=== PATIENT | male | born 1955 | race Caucasian/White ===

== ENCOUNTER 2016-09-20 18:44 | Emergency (ER) | payer BC ==
[2016-09-20 18:50] VITALS: BP 191/95
--- NOTE | 2016-09-20 20:58 | RAD ---
HISTORY: Left lower extremity edema Comparison: Most recent DVT study is dated 07/03/2016 and 10/16/2008 TECHNIQUE: Multiple transverse and longitudinal ultrasound images were obtained of the veins of the left lower extremity using grayscale, color Doppler, and spectral Doppler imaging with and without compression and with augmentation. FINDINGS: VEINS: The patient appears to have duplicated left femoral vein. One of the 2 veins exhibits flow limiting echogenic thrombus narrowing the lumen similar in appearance to the previous ultrasound. The second vein appears adequately patent. The left popliteal vein has chronic thrombus in the lumen greatly narrowing the lumen. SOFT TISSUES: Grossly normal. No large popliteal fossa cyst was identified. IMPRESSION: 1. 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 Chronic DVT and lower extremity swelling exclusive to the left leg can sometimes be due to mechanical compression in the pelvis. CT or MR venography of the abdomen and pelvis may be warranted to determine if this patient suffers from an anatomic or compression deformity syndrome. 2. Incidentally imaged is what appears to be an occluded proximal left superficial femoral artery. Please correlate to symptoms of claudication.
[2016-09-20] MEDS ORDERED: Enoxaparin(*) 100 MG/ML SYR SUBCUT ONE (21:11)
[2016-09-20 21:29] LABS: Hematocrit 51 % (42-52); Hemoglobin 16.5 g/dl (14.0-18.0); Mean Corpuscular HGB Conc 32 g/dl (31-36); Mean Corpuscular Hemoglobin 27 pg (27-31); Mean Corpuscular Volume 83 fL (80-94); Mean Platelet Volume 10 um3 (7.4-10.4); Red Blood Count 6.16 10^6/ul (4.0-5.4); Red Cell Distribution Width 15 % (10.5-15); White Blood Count 12.5 10^3/ul (3.5-10.8)
[2016-09-20 21:45] LABS: Albumin 3.8 g/dL (3.2-5.2); BUN/Creatinine Ratio 19.1 (8-20); Calcium 9.2 mg/dL (8.6-10.3); EGFR African American 87.2 (>60); EGFR Non-African American 67.8 (>60); Globulin 2.9 g/dL (2-4); Potassium 4.9 mmol/L (3.5-5.0); Total Bilirubin 0.4 mg/dL (0.2-1.0); Total Protein 6.7 g/dL (6.4-8.9)
[2016-09-20] MEDS ORDERED: Enoxaparin(*) 150 MG/ML 1 ML SYRINGE SUBCUT SCH (22:00)
--- NOTE | 2016-09-22 14:34 | ED ---
Eliud Frias Billy, scribed for Sohan Crowell MD on 09/20/16 at 2105 . Lower Extremity - HPI Summary HPI Summary: Patient is a 61 year-old male coming to [facility] presenting with onset of constant LLE swelling and pain for 2 days. Severity 2/10. Nothing makes it better/worse. He denies any CP or SOB. He was placed on Coumadin for 14 months to treat chronic DVT in the LLE, but it was discontinued approximately one week ago by Dr. Cullen. SHx of heavy daily tobacco use. - History of Current Complaint Chief Complaint: EDExtremityLower Stated Complaint: LEFT LEG SWELLING/PAIN Time Seen by Provider: 09/20/16 19:55 Hx Obtained From: Patient Onset of Pain: Days Onset/Duration: Days Severity Initially: Moderate Severity Currently: Moderate Pain Intensity: 2 Pain Scale Used: 0-10 Numeric Timing: Constant Location: Is Discrete @ - LLE Associated Signs And Symptoms: Positive: Swelling Aggravating Factor(s): Nothing Alleviating Factor(s): Nothing - Allergies/Home Medications Allergies/Adverse Reactions: Allergies Allergy/AdvReac Type Severity Reaction Status Date / Time Codeine Allergy Stomach Verified 06/15/15 16:26 Cramps PMH/Surg Hx/FS Hx/Imm Hx Endocrine/Hematology History: Denies: Hx Diabetes Cardiovascular History: Reports: Hx Hypertension Denies: Hx Congestive Heart Failure Respiratory History: Reports: Hx Chronic Obstructive Pulmonary Disease (COPD) - equivocal History: Denies: Hx Renal Disease - Surgical History Surgery Procedure, Year, and Place: cyst (benign) on left shoulder; broken jaw Infectious Disease History: No Infectious Disease History: Denies: Hx Clostridium Difficile, Hx Hepatitis, Hx Human Immunodeficiency Virus (HIV), Hx of Known/Suspected MRSA, Hx Shingles, Hx Tuberculosis, Hx Known/ Suspected VRE, Hx Known/Suspected VRSA, History Other Infectious Disease, Traveled Outside the [place] in Last 30 Days - Family History Known Family History: Positive: Other - FHx of blood clots. - Social History Alcohol Use: None Alcohol Amount: stopped 11.5 yrs ago Substance Use Type: Reports: None Smoking Status (MU): Heavy Every Day Tobacco Smoker Amount Used/How Often: 1 ppd Have You Smoked in the Last Year: Yes Review of Systems Negative: Chest Pain Negative: Shortness Of Breath Positive: Myalgia, Edema All Other Systems Reviewed And Are Negative: Yes Physical Exam - Summary Physical Exam Summary: GENERAL: Awake, alert, oriented, no acute distress, very pleasant HEENT: Head is normocephalic, atraumatic, anicteric sclera, clear conjunctiva, mucous membranes moist, no erythema, no discharge, no lesions, neck is supple, trachea is midline, no JVD CARDIAC: Regular rate and rhythm, S1, S2, no rub, no murmur, no gallop, 2+ radial pulses bilaterally. 1+ dorsalis pedal pulses bilaterally. RESPIRATORY: Clear to auscultation bilaterally with no rales, rhonchi, or wheezes, non-tender ABDOMEN: Bowel sounds positive, no bruit, soft, non-tender, no CVA tenderness EXTREMITIES: Warm, dry, moving all extremities in a grossly normal manner. LLE appears approximately 2 cm wider in diameter than RLE. NEUROLOGICAL: Mood is appropriate, moving all extremities in a grossly normal manner Triage Information Reviewed: Yes Vital Signs On Initial Exam: Initial Vitals Temp Pulse Resp BP Pulse Ox 97.8 F 74 18 191/95 97 09/20/16 18:45 09/20/16 18:45 09/20/16 18:45 09/20/16 18:45 09/20/16 18:45 Vital Signs Reviewed: Yes Diagnostics - Vital Signs Vital Signs Temp Pulse Resp BP Pulse Ox 09/20/16 18:45 97.8 F 74 18 191/95 97 - Laboratory Result Diagrams: 09/20/16 21:16 09/20/16 19:56 Lab Statement: Any lab studies that have been ordered have been reviewed, and results considered in the medical decision making process. - Ultrasound No standard instances Ultrasound Interpretation Completed By: Radiologist - Lower extremity US: 1. 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 Chronic DVT and lower extremity swelling exclusive to the left leg can sometimes be due to mechanical compression in the pelvis. CT or MR venography of the abdomen and pelvis may be warranted to determine if this patient suffers from an anatomic or compression deformity syndrome. 2. Incidentally imaged is what appears to be an occluded proximal left superficial femoral artery. Please correlate to symptoms of claudication. Re-Evaluation - Re-Evaluation First Eval Re-Evaluation Time: 21:18 Comment: US report reviewed. We had a rather long, 15-minute conversation about the benefits smoking cessation. Lower Extremity Course/Dx - Course Assessment/Plan: 61 year-old male to the ED with history of chronic LLE DVT comes to the ED with increased pain/swelling of the LLE. US shows what could be an occluded proximal left superficial femoral artery. Findings discussed with the patient. He will be discharged home to follow up with his PCP. - Diagnoses Provider Diagnoses: DVT (deep venous thrombosis), Peripheral vascular disease - Physician Notifications Discussed Care of Patient With: Renard Segundo NP (hospitalist) @ 2105 Discharge - Discharge Plan Condition: Stable Disposition: HOME Patient Education Materials: Leg Edema (ED), Blood Thinners (ED) Referrals: Arnaud Aparicio MD [Primary Care Provider] - 2 Days Andres Cullen MD [Medical Doctor] - 2 Days Additional Instructions: PLEASE FOLLOW UP WITH DR. CULLEN. RETURN TO THE EMERGENCY DEPARTMENT WITH ANY WORSENING SYMPTOMS SUCH CHEST PAIN OR SHORTNESS OF BREATH. The documentation as recorded by the Eliud merlos Billy accurately reflects the service I personally performed and the decisions made by me, Sohan Crowell MD.
[2016-09-23 12:35] LABS: Protein C Activity 95 % (70 - 150)
[2016-09-23 12:51] LABS: LAC APTT 26 sec (26 - 36); LAC INR 0.9; Prothrombin Time(LAC) 9.9 sec
[2016-09-23 12:52] LABS: Lac DRVVT Screen Ratio 0.9 ratio (0.0 - 1.1)
[2016-09-23 16:01] LABS: Phospholipid Ab IgG < 4.0 GPL; Phospholipid Ab IgM, S < 4.0 MPL
[2016-09-25 09:56] LABS: Factor V Leiden Mutation Negative (Negative); Prothrombin 20210 Mutation Negative (Negative)
== END 2016-09-20 22:36 | disposition home or self-care (01) ==
LOC: ED 18:44
DX: I82.4Z2 Acute embolism and thrombosis of unspecified deep veins of left distal lower extremity (principal); I73.9 Peripheral vascular disease, unspecified
CPT/HCPCS: 36415; 80053; 81240; 81241; 83090; 85025; 85300; 85303; 85306; 85307; 85610; 85613; 85730; 86147; 99282; J1650

== ENCOUNTER 2018-10-20 20:25 | Observation (INO) | payer BC ==
[2018-10-20] MEDS ORDERED: Albuterol/Ipratropium NEB.SOL* Albuterol 2.5 MG/Ipratropium 0.5 MG 3 ML INH ONE (20:46)
[2018-10-20] MEDS ORDERED: methylPREDNISolone 125 MG* 2 ML VIAL IV ONE (20:46)
--- NOTE | 2018-10-20 21:00 | ED ---
Syncope/Near Syncope - HPI Summary HPI Summary: This patient is a 63 year old male brought in to [facility] by EMS with a chief complaint of an episode of syncope due to SOB that occurred tonight. His is present and witnessed the episode, she describes it as he began coughing, mucus started coming out of his mouth, and his eyes rolled back in his head. She did not take a pulse at this time and contacted EMS instead, she states the episode lasted 5 minutes before resolving. He states he had two other fits like this today but did not have any LOC with them. He states he does not really have SOB currently. He takes 10mg of day of warfarin due to clotting and he has been on it for 10 years. He does have a history of COPD and does still smoke. He has not had another heart work up since 2008. He also c/o sharp pain that radiating from his neck into his skull - History Of Current Complaint Chief Complaint: EDShortnessOfBreath Time Seen by Provider: 10/20/18 20:40 Hx Obtained From: Patient Onset/Duration: Lasting Hours - 5, Resolved Timing: Intermittent Episode Lasting Context: Witnessed Activity At Onset: Other Associated Head Trauma: No Associated Signs And Symptoms: Other - LOC - Allergies/Home Medications Allergies/Adverse Reactions: Allergies Allergy/AdvReac Type Severity Reaction Status Date / Time codeine Allergy Stomach Verified 10/20/18 20:55 Cramps Home Medications: Home Medications Chlorhexidine MW 0.12% 473ML* [Peridex Mouth Wash 0.12%] 1 dose PO DAILY [History Confirmed 10/21/18] Lisinopril 10 mg PO DAILY 10/21/18 [History Confirmed 10/21/18] Pravastatin Sodium 40 mg PO DAILY 10/21/18 [History Confirmed 10/21/18] Warfarin Sodium 10 mg PO DAILY 10/21/18 [History Confirmed 10/21/18] PMH/Surg Hx/FS Hx/Imm Hx Endocrine/Hematology History: Denies: Hx Diabetes Cardiovascular History: Reports: Hx Hypertension Denies: Hx Congestive Heart Failure Respiratory History: Reports: Hx Chronic Obstructive Pulmonary Disease (COPD) - equivocal History: Denies: Hx Renal Disease - Surgical History Surgery Procedure, Year, and Place: cyst (benign) on left shoulder; broken jaw Infectious Disease History: No Infectious Disease History: Denies: Hx Clostridium Difficile, Hx Hepatitis, Hx Human Immunodeficiency Virus (HIV), Hx of Known/Suspected MRSA, Hx Shingles, Hx Tuberculosis, Hx Known/ Suspected VRE, Hx Known/Suspected VRSA, History Other Infectious Disease, Traveled Outside the [place] in Last 30 Days - Family History Known Family History: Positive: Other - FHx of blood clots. Negative: Respiratory Disease - Social History Alcohol Use: None Alcohol Amount: stopped 11.5 yrs ago Substance Use Type: Reports: None Smoking Status (MU): Heavy Every Day Tobacco Smoker Amount Used/How Often: 1 ppd Have You Smoked in the Last Year: Yes Review of Systems Negative: Fever Positive: Shortness Of Breath, Cough Positive: Syncope All Other Systems Reviewed And Are Negative: Yes Physical Exam - Summary Physical Exam Summary: Appearance: Well appearing, no pain distress Skin: warm, dry, reflects adequate perfusion Head/face: normal Eyes: EOMI, RENATA ENT: normal Neck: supple, non-tender Respiratory: occasional wheeze bilaterally Cardiovascular: RRR, pulses symmetrical Abdomen: non-tender, soft Musculoskeletal: normal, strength/ROM intact Neuro: normal, sensory motor intact, A&Ox3 Triage Information Reviewed: Yes Vital Signs On Initial Exam: Initial Vitals Temp Pulse Resp BP Pulse Ox 99.3 F 80 22 147/69 91 10/20/18 20:30 10/20/18 20:30 10/20/18 20:30 10/20/18 20:30 10/20/18 20:30 Vital Signs Reviewed: Yes - Nadia Coma Scale Best Eye Response: 4 - Spontaneous Best Motor Response: 6 - Obeys Commands Best Verbal Response: 5 - Oriented Coma Scale Total: 15 Diagnostics - Vital Signs Vital Signs Temp Pulse Resp BP Pulse Ox 10/20/18 20:31 82 147/69 93 10/20/18 20:30 99.3 F 80 12 147/69 91 - Laboratory Result Diagrams: 10/20/18 21:04 10/20/18 21:04 Lab Statement: Any lab studies that have been ordered have been reviewed, and results considered in the medical decision making process. - Radiology CXR Radiology Interpretation Completed By: ED Physician Summary of Radiographic Findings: No acute process. Pending official report - CT CT Head CT Interpretation Completed By: Radiologist Summary of CT Findings: No acute intracranial abnormality. ED physician has reviewed this report. - EKG 2046 Cardiac Rate: NL EKG Rhythm: Sinus Rhythm - at 81 BPM Summary of EKG Findings: No acute changes Course/Dx Assessment/Plan: This patient is a 63 year old male brought in to [facility] by EMS with a chief complaint of an episode of syncope due to SOB that occurred tonight. CXR was negative. Pending official report. CT Brain reveals, per radiology, No acute intracranial abnormality. Bloodwork obtained. The patient was given Tylenol and a duoneb in the ED with improvement. I contacted Dr. Rios and she has accepted the patient for admission. - Diagnoses Differential Diagnosis/HQI/PQRI: Positive: Dysrhythmia, Vasovagal Episode Provider Diagnoses: COPD exacerbation, SOB (shortness of breath), Syncope - Physician Notifications Discussed Care of Patient With: Kandy Rios Time Discussed With Above Provider: 23:00 Instructed by Provider To: Admit As Inpatient Discharge - Sign-Out/Discharge Documenting (check all that apply): Patient Departure - admitted Patient Received Moderate/Deep Sedation with Procedure: No - Discharge Plan Condition: Fair Disposition: ADMITTED TO [facility] - Billing Disposition and Condition Condition: FAIR Disposition: Admitted to [facility] - Attestation Statements Document Initiated by Scribe: Yes Documenting Scribe: Edwar Mosquera Provider For Whom Scribe is Documenting (Include Credential): Ian Duran MD Scribe Attestation: Edwar Frias , scribed for Ian Duran MD on 10/21/18 at 0054. Scribe Documentation Reviewed: Yes Provider Attestation: The documentation as recorded by the Edwar merlos accurately reflects the service I personally performed and the decisions made by Ian roldan MD Status of Scribe Document: Viewed
[2018-10-20 21:14] LABS: ABS Basophils 0.1 10^3/ul (0-0.2); ABS Eosinophils 0.2 10^3/ul (0-0.6); ABS Lymphocytes 1.9 10^3/ul (1.0-4.8); ABS Monocytes 0.7 10^3/ul (0-0.8); ABS Neutrophils 5.9 10^3/ul (1.5-7.7); ABS Nucleated RBC 0 10^3/ul; Eosinophil % 2.6 %; Hematocrit 48 % (42-52); Hemoglobin 15.9 g/dl (14.0-18.0); Lymphocyte % 22.1 %; Mean Corpuscular HGB Conc 33 g/dl (31-36); Mean Corpuscular Hemoglobin 28 pg (27-31); Mean Corpuscular Volume 84 fL (80-94); Mean Platelet Volume 9.2 fL (7.4-10.4); Nucleated Red Blood Cells % 0; Platelet Count 199 10^3/ul (150-450); Red Blood Count 5.74 10^6/ul (4.00-5.40); Red Cell Distribution Width 14 % (10.5-15); White Blood Count 8.8 10^3/ul (3.5-10.8)
[2018-10-20 21:23] LABS: Activated Partial Thrombo Time 37.3 seconds (26.0-36.3); INR 1.78 (0.77-1.02)
[2018-10-20 21:31] LABS: Albumin/Globulin Ratio 1.7 (1-3); BUN/Creatinine Ratio 21.6 (8-20); Calcium 8.8 mg/dL (8.6-10.3); EGFR African American 80.7 (>60); EGFR Non-African American 66.7 (>60); Globulin 2.4 g/dL (2-4); Total Bilirubin 0.3 mg/dL (0.2-1.0); Total Protein 6.4 g/dL (6.4-8.9)
[2018-10-20 22:10] LABS: TSH (Thyroid Stimulating Horm) 1.19 mcIU/mL (0.34-5.60)
[2018-10-20 22:23] LABS: Potassium 4.5 mmol/L (3.5-5.0)
[2018-10-20] MEDS ORDERED: Acetaminophen TAB* 325 MG PO PRN (23:19)
[2018-10-20 23:20] LABS: C Reactive Protein 5.71 mg/L (<8.01)
[2018-10-20] MEDS ORDERED: Acetaminop/Codeine 30 MG TAB* 1 TAB (300 MG/30 MG) PO PRN (23:21)
[2018-10-20 23:40] LABS: Magnesium 2.2 mg/dL (1.9-2.7)
[2018-10-20] MEDS ORDERED: Albuterol HFA INHALER* 8 gm MDI INH PRN (23:45)
[2018-10-20] MEDS ORDERED: guaiFENesin LIQ* 100 MG/5 ML UDC PO PRN (23:45)
[2018-10-20] MEDS ORDERED: Iohexol 350* (CONTRAST) 500 ML MDV IV ONE (23:46)
[2018-10-21] MEDS: Albuterol/Ipratropium NEB.SOL* Albuterol 2.5 MG/Ipratropium 0.5 MG 3 ML INH SCH ×2 (00:57→03:40)
[2018-10-21] MEDS ORDERED: Warfarin TAB(*) 2 MG PO ONE (01:05)
--- NOTE | 2018-10-21 01:43 | HP ---
CC: Dr. Aparicio * HISTORY AND PHYSICAL: DATE OF ADMISSION: 10/20/18 PRIMARY CARE PROVIDER: Dr. Aparicio. CHIEF COMPLAINT: Syncope after cough. HISTORY OF PRESENT ILLNESS: Rasheed Torres is a 63-year-old male with history of COPD, not treated, who has chronic cough and today after shoveling snow outside developed three "cough attacks." After the initial two attacks, he felt dizzy, but did not pass out; the third one, he passed out; and as per his who witnessed the syncope, the patient was unconscious for approximately 4 minutes. The patient denies any chest pain before or after the syncope. He was short of breath when he was coughing. He is not short of breath now. There was no incontinence noted. The patient was evaluated in the emergency room by Dr. Duran, who noted that the patient had situational syncope. Nevertheless, Dr. Duran recommended for the patient to be observed overnight to rule out arrhythmia. PAST MEDICAL HISTORY: 1. History of COPD, currently untreated. 2. History of DVT, on chronic Coumadin. 3. History of fracture of the mandible, status post surgery for it remotely. 4. Dyslipidemia. 5. Current smoking. HOME MEDICATIONS: Include: 1. Lisinopril 10 mg daily. 2. Pravachol 40 mg daily. 3. Coumadin 10 mg daily. ALLERGIES: CODEINE causes GI upset. FAMILY HISTORY: Positive for mother with history of Alzheimer's who when she was "nearly 90." Father with history of stroke at the age of 69 who in his 80s. SOCIAL HISTORY: The patient was an alcoholic, but quit drinking in 2004. He denies any drug use. He smokes one pack per day and he started when he was 11 years old. He lives with his , Kassy, who is his surrogate. REVIEW OF SYSTEMS: Please see history of present illness. The patient stated that he has chronic cough productive of green sputum. Sometimes when exerts himself, he coughs more. Otherwise, he has no clear-cut exercise intolerance. He denies any chest pain with exercise. He has never experienced syncope before. He denies any fevers. His cough today is not out of ordinary for him. His breathing is also at baseline. The remaining 12 systems were reviewed with the patient and were otherwise negative. PHYSICAL EXAMINATION GENERAL: The patient is a pleasant 63-year-old male, who is in no acute distress. Alert, awake, and oriented x3. VITAL SIGNS: Blood pressure of 143/68, heart rate of 75 and regular, respiratory rate 21, oxygen saturation 92% on room air, temperature of 99.3. HEENT: Head: Atraumatic, normocephalic. Eyes: Pupils are equal, reactive to light and accommodation. Oropharynx clear. Mucosa moist. NECK: Supple. No JVD. No bruits bilaterally. RESPIRATORY: Distant breath sounds bilaterally. No wheezes. CARDIOVASCULAR: Regular rate and rhythm. No murmurs. ABDOMEN: Soft, nontender. Bowel sounds are present in all 4 quadrants. EXTREMITIES: There is trace bilateral ankle edema. Pulses are +2 bilaterally. There is no clubbing, cyanosis. NEUROLOGIC: On neuro evaluation, speech clear. Cranial nerves II through XII are grossly intact. Motor strength is 5/5 bilaterally. PSYCHIATRIC: On psychiatric evaluation, alert and oriented x3 with no evidence of anxiety or depression. DIAGNOSTIC STUDIES/LAB DATA: Showed white blood cell count 8.8, hemoglobin 15.9 , hematocrit 48, platelets 199. INR 1.78. ABG showed pH of 7.39, PCO2 of 40, PO2 of 76, bicarb of 24. Sodium 137, potassium 4.9, chloride 106, carbon dioxide 25, BUN 24, creatinine 1.1. Liver function tests unremarkable. Lactic acid of 1.3. Troponin of 0. C-reactive protein of 5.7. TSH of 1.19. The patient's EKG showed normal sinus rhythm with a heart rate of 81 beats per minute with no ST changes. The patient's portable chest x-ray reviewed by myself showed no acute cardiopulmonary abnormality. ASSESSMENT AND PLAN: 1. Situational syncope due to cough. Unfortunately, the patient is allergic to CODEINE which could be a good cough suppressant for the patient. I believe that apart from underlying chronic obstructive pulmonary disease, he may have cough variant asthma. It is also possible that his LISBETH inhibitor causes the cough. At this point, the patient is going to be placed on Dulera. He already received a nebulizer treatment as well as Solu-Medrol IV in the emergency department, but at this point he does not appear to be wheezing. I will place the patient on albuterol inhaler on p.r.n. basis and will be beneficial for the patient to be discharged on inhalers for home. 2. For the patient's hypertension, I will stop his lisinopril due to that it could contribute to cough and observe. 3. As the patient has history of deep venous thrombosis and for deep venous thrombosis prophylaxis, the patient is on Coumadin 10 mg daily and his INR is subtherapeutic. He is going to be placed on Coumadin 12 mg daily and I am going to give him additional dose tonight. Due to history of deep venous thrombosis and now syncope, I will order a CT angiogram of chest to rule out pulmonary embolism. 4. The patient's code status is full and his surrogate is his , Kassy. TIME SPENT: Approximately 65 minutes were spent on the admission of this patient, more than half of that time was spent [id number] with the patient during the interview and physical exam. [id number]/CPS #: [id number] [place]
[2018-10-21] MEDS ORDERED: Albuterol/Ipratropium NEB.SOL* Albuterol 2.5 MG/Ipratropium 0.5 MG 3 ML INH PRN (03:41)
[2018-10-21 06:09] LABS: ABS Basophils 0 10^3/ul (0-0.2); ABS Eosinophils 0 10^3/ul (0-0.6); ABS Lymphocytes 0.7 10^3/ul (1.0-4.8); ABS Monocytes 0.1 10^3/ul (0-0.8); ABS Neutrophils 6.5 10^3/ul (1.5-7.7); ABS Nucleated RBC 0 10^3/ul; Eosinophil % 0.2 %; Hematocrit 48 % (42-52); Hemoglobin 15.6 g/dl (14.0-18.0); Mean Corpuscular HGB Conc 33 g/dl (31-36); Mean Corpuscular Hemoglobin 28 pg (27-31); Mean Corpuscular Volume 84 fL (80-94); Mean Platelet Volume 9.4 fL (7.4-10.4); Nucleated Red Blood Cells % 0; Platelet Count 191 10^3/ul (150-450); Red Blood Count 5.67 10^6/ul (4.00-5.40); Red Cell Distribution Width 15 % (10.5-15); White Blood Count 7.2 10^3/ul (3.5-10.8)
[2018-10-21 06:14] LABS: INR 1.94 (0.77-1.02)
[2018-10-21 06:29] LABS: BUN/Creatinine Ratio 21.4 (8-20); EGFR African American 75.9 (>60); EGFR Non-African American 62.8 (>60); Potassium 4.9 mmol/L (3.5-5.0)
[2018-10-21] MEDS ORDERED: Mometasone/Formoter 200/5 MDI INH SCH (09:00)
--- NOTE | 2018-10-21 09:00 | ECHO ---
Patient: KENNY GRIDER [facility] Rec#: [id number] : 1955 Date: 10/21/2018 Age: 63y Height: 183 cm / 72.0 in Weight: 129 kg / 284.3 lbs Sex: M BSA: 2.48 Room#: [facility] Admit Date#: 10/20/2018 Type: Inpatient Referring: Kandy Rios MD Reading: Tylor Pepe DO Nocturnist Physician: Kacie Camarena RDCS CC: Arnaud Aparicio MD Transthoracic Echocardiogram Indication: Syncope BP: 139/68 HR: 77 Rhythm: NSR Findings History: HTN, smoker, obesity, DVT, COPD, dyslipidemia, former ETOH abuse. Technical Comments: The study quality is fair. Completed at 0825. Left Ventricle: The left ventricular chamber size is normal. Mild concentric left ventricular hypertrophy is observed. Global left ventricular wall motion and contractility are within normal limits. There is normal left ventricular systolic function. The estimated ejection fraction is 55-60%. Abnormal left ventricular diastolic function is observed. Left Atrium: The left atrium is mildly dilated. Right Ventricle: The right ventricular chamber size and systolic function are within normal limits. Right Atrium: The right atrium is mildly dilated. Aortic Valve: The aortic valve is trileaflet. The aortic valve leaflets are mildly thickened. There is no evidence of aortic regurgitation. There is no evidence of aortic stenosis. Mitral Valve: The mitral valve leaflets are mildly thickened. There is a trace of mitral regurgitation. There is no evidence of mitral stenosis. Tricuspid Valve: The tricuspid valve leaflets are normal. There is trace tricuspid regurgitation. Unable to estimate the right ventricular systolic pressure. There is no tricuspid stenosis. Pulmonic Valve: The pulmonic valve appears normal. There is a trace pulmonic regurgitation. There is no pulmonic stenosis. Pericardium: There is no significant pericardial effusion. Aorta: There is no dilatation of the ascending aorta. The aortic arch is not well visualized. The aortic root is normal in size. Pulmonary Artery: The main pulmonary artery is not well visualized. Venous: The inferior vena cava appears normal in size. There is a greater than 50% respiratory change in the inferior vena cava dimension. Conclusions The left ventricular chamber size is normal. Mild concentric left ventricular hypertrophy is observed. Global left ventricular wall motion and contractility are within normal limits. There is normal left ventricular systolic function. The estimated ejection fraction is 55-60%. The left atrium is mildly dilated. Normal RV size and function No significant valvular abnormalities noted. Compared to prior study from 05/2011, no significant changes noted Measurements Name Value Normal Range RVIDd (AP) 2D 3.3 cm (0.9 - 2.6) RVDdMajor (2D) 4.8 cm (2.2 - 4.4) RA (A4C)W 4.9 cm (2.9 - 4.6) IVSd (2D) 1.2 cm (0.6 - 1) LVPWd (2D) 1.2 cm (0.6 - 1) LVIDd (2D) 5.1 cm (3.6 - 5.4) LVIDs (2D) 3.4 cm - LV FS (2D) 33 % (25 - 45) Aortic Annulus 2.1 cm (1.4 - 2.6) Ao root diameter (2D) 3.4 cm (2.1 - 3.5) Ascending Ao 3.2 cm (2.1 - 3.4) LA dimension (AP) 2D 4.3 cm (2.3 - 3.8) LAd ISD 4CH 5.9 cm (2.9 - 5.3) LA ISD 4CH W 4.6 cm (2.5 - 4.5) Name Value Normal Range LA ESV BP (A/L) index 34 ml/m2 - Name Value Normal Range MV E-wave Vmax 1.1 m/sec - MV deceleration time 218 msec - MV A-wave Vmax 1 m/sec - MV E:A ratio 1.1 ratio - LV septal e' Vmax 0.08 m/sec - LV lateral e' Vmax 0.09 m/sec - LV E:e' septal ratio 13.8 ratio - LV E:e' lateral ratio 12.2 ratio - Name Value Normal Range AV Vmax 1.96 m/sec - AV VTI 40 cm - AV peak gradient 15 mmHg - AV mean gradient 8 mmHg - LVOT Vmax 1.5 m/sec - LVOT VTI 26 cm - LVOT peak gradient 9 mmHg - LVOT mean gradient 3 mmHg - Name Value Normal Range IVC diameter 1.8 cm - Name Value Normal Range PV Vmax 1.2 m/sec - PV peak gradient 5 mmHg -
[2018-10-21 09:45] VITALS: BP 140/67
--- NOTE | 2018-10-21 20:02 | DS ---
AMENDED REPORT NOW INCLUDES COSIGNER DESIGNATION CC: Dr. Arnaud Aparicio * DISCHARGE SUMMARY: DATE OF ADMISSION: 10/20/18 DATE OF DISCHARGE: 10/21/18 PRIMARY CARE PROVIDER: Dr. Arnaud Aparicio. ATTENDING PHYSICIAN: Dr. Josefina Moss * (dictated by Beverly Treadwell NP). PRIMARY DIAGNOSES: 1. Vasovagal syncope due to cough. 2. Chronic obstructive pulmonary disease, untreated. SECONDARY DIAGNOSES: 1. History of deep venous thrombosis. 2. Hyperlipidemia. 3. Hypertension. STUDIES WHILE IN THE HOSPITAL: 1. EKG on 10/20/18 shows normal sinus rhythm with a rate of 81, QTc 453. No ischemic changes. 2. Chest x-ray on 10/20/18 reads as no evidence for acute disease. 3. Brain CT on 10/20/18 reads as no acute intracranial abnormality. 4. Chest/thorax CTA on 10/20/18 reads as no acute findings. 5. Transthoracic echocardiogram on 10/21/18 reads as the left ventricular chamber size is normal. Mild concentric left ventricular hypertrophy is observed. Global left ventricular wall motion and contractility are within normal limits. There is normal left ventricular systolic function. The estimated ejection fraction is 55% to 60%. The left atrium is mildly dilated. Normal RV size and function. No significant valvular abnormalities. Compared to prior study from May 2011, no significant changes noted. HISTORY OF PRESENT ILLNESS AND HOSPITAL COURSE: Mr. Torres is a 63-year-old male with past medical history of untreated COPD, hypertension, DVT and hyperlipidemia, who presented to the emergency room on 10/20/18 with complaints of syncope after a coughing episode. Please see the history and physical by Dr. Rios for a complete summary of the events leading up to this hospitalization. In short, the patient has a history of COPD for which he is not treated. He is a current smoker, smoking 1 pack per day for approximately 50 years. The patient had been shoveling snow outside and had an episode of coughing, during which he lost consciousness. The patient's witnessed the syncope and reports that he lost consciousness for approximately 4 minutes. He presented to the emergency room where he had imaging as noted above. He had normal ABGs, a negative troponin, and essentially unremarkable labs. However, because of the concern for possible arrhythmia, he was admitted by the hospitalist service. Mr. Torres had an uneventful night and had no arrhythmias noted on tele except for some short periods of bigeminy and trigeminy while sleeping. He continues to have a cough, but the patient reports that he has a chronic productive cough , which he has had for a number of years. He reported to me that he has syncopized in the past during these coughing episodes, though he currently is still a smoker and is not being treated for his COPD. He reports that he had been on an inhaler in the past, which he felt was not helpful and he stopped taking it. He did have 1 nebulizer while in the emergency room, which he felt was helpful. I will note that the patient is on warfarin for a history of DVT. On arrival to the emergency room, his INR was noted to be 1.78. The patient reports that he has taken 10 mg of warfarin daily for a number of years and is always therapeutic on that dose. He has not needed a change in dosing for quite some time. He received an additional 2 mg of warfarin last night and as of this morning his INR was 1.94. The patient does report that he consumed 1 can of spinach a couple days ago, which is somewhat unusual for him. He understands that spinach and other green leafy vegetables will affect his INR. On admission, the patient was taken off his lisinopril due to the unlikely event that the lisinopril was contributing to his cough. He has been slightly hypertensive off of the lisinopril with systolic pressures up into the 150s. I do think it is unlikely that the lisinopril is causing any significant increase in cough as I do believe his cough is solely secondary to his COPD and current smoking status. The patient did have an echo as noted above, which was unchanged from his prior echo in 2010 and at this point there are no cardiac concerns. His syncope was vasovagal secondary to cough. I did speak at length with the patient about his diagnosis of COPD and the need to quit smoking. He understands that going forward he will need to use daily inhalers to treat his COPD and should quit smoking in order to prevent further progression of the disease. On exam, his lung sounds are diminished throughout, but there is no wheezing, rhonchi, or rales. He is saturating well on room air and has been up ambulating without difficulty. He denies any shortness of breath or chest pain. Mr. Torres is stable for discharge today. Vital signs are as follows: Temp 97.7 , heart rate 78, respiratory rate 20, oxygen saturation 94% on room air, blood pressure 140/67. DISCHARGE MEDICATIONS: New medications: 1. Albuterol MDI 2 puffs q.4 hours p.r.n. shortness of breath. 2. Tessalon Perles 100 mg p.o. t.i.d. p.r.n. cough. 3. Advair 230/21 one puff b.i.d. 4. Nicotine patch 21 mg transdermal daily x6 weeks. 5. Spiriva 1 cap inhalation daily. Continued medications: 1. Chlorhexidine mouthwash 1 dose p.o. daily. 2. Lisinopril 10 mg p.o. daily. 3. Pravastatin 40 mg p.o. daily. 4. Warfarin 10 mg p.o. daily. DISCHARGE PLAN: Mr. Torres will be discharged home. Activity will be as tolerated. Diet will be regular as tolerated, though I did discuss the need to limit vitamin K intake or at least keep the vitamin K intake consistent in an attempt to stabilize his INR. I have advised him that he should have his INR rechecked on Wednesday and he states that he will do this at his primary care office and declined the need for an order. Medications are noted above. The patient does have a prior diagnosis of COPD and has not been on any medications. I have placed him on Advair and Spiriva, and he has been instructed to take these daily for maintenance. I have also prescribed him an albuterol inhaler for a rescue medication. I suspect that the Advair and Spiriva will help with his cough, though I have also prescribed him a month's worth of Tessalon in order to help control his cough. The patient has verbalized a desire to quit smoking. He reports he has tried Chantix and nicotine replacement in the past and it did not work for him, though he is motivated at this point and was agreeable to using a nicotine patch. I sent in a prescription for 6 weeks of the Step 1 patch. His primary care provider will need to follow up in order to titrate him off these patches appropriately. The patient reports that he has seen a community health consultant previously with [facility], though he was not particularly happy with the care he received. I have advised him that he may follow up with Pulmonology here at [facility], but will likely need a referral from his PCP. He will need to follow up with his primary care provider in 4 to 7 days. He has been advised to return to the emergency room or nearest hospital for any worsening of symptoms, shortness of breath, lightheadedness, dizziness, chest discomfort, high fevers, chills, night sweats, loss of consciousness, or any other worrisome signs or symptoms. This is a summarized report of a complex medical history and hospital stay. For further details, please see the entire medical record. TIME SPENT: Approximately 45 minutes was spent on this discharge. BEVERLY TREADWELL NP [id number]/[facility] #: [id number] [place]
== END 2018-10-21 11:40 | disposition home or self-care (01) ==
LOC: ED 20:25 → MEDTELE 23:19
PROVIDERS: ADMIT Internal Medicine; ATTEND Internal Medicine
DX: R55 Syncope and collapse (principal); J44.9 Chronic obstructive pulmonary disease, unspecified; Z86.718 Personal history of other venous thrombosis and embolism; R05 Cough; I10 Essential (primary) hypertension; E78.5 Hyperlipidemia, unspecified; Z79.01 Long term (current) use of anticoagulants; F17.210 Nicotine dependence, cigarettes, uncomplicated; R06.02 Shortness of breath
CPT/HCPCS: 36415; 70450; 71045; 71275; 80048; 80053; 82803; 83605; 83735; 83880; 84443; 84484; 85025; 85610; 85730; 86140; 93005; 93306; 96374; 96375; 99284; A9270-GY; G0378; J2930; Q9967

== ENCOUNTER 2019-07-19 14:17 | Emergency (ER) | payer BC, MEDICARE ==
--- OUTSIDE RECORDS SUMMARY | 2019-07-19 14:52 | XMS REPORT | Summary of Care ---
:1955 Author Organization [facility] Address [address] [place] [address] Care Team Providers Name Role Phone Arnaud Aparicio MD Primary Care Provider Reason for Referral MRI/CAT/PET Scan (Routine) Status Reason Specialty Diagnoses / Referred By Referred To Procedures Contact Contact Pending Review Diagnoses Personal history of nicotine dependence Arnaud Aparicio MD Procedures CT CHEST LUNG SCREENING [address] [place] [address] Reason for Visit Reason Comments Other pt presents for discussion on lung screening Encounter Details Date Type Department Care Team Description 06/06/2019 Office Visit [facility] Arnaud Aparicio MD Personal history of nicotine dependence (Primary Dx); Practice [address] [facility] Essential hypertension; [address] [place] [address] Drug-induced erectile dysfunction; [place] [address] Nocturia [phone] Allergies Active Allergy Reactions Severity Noted Date Comments Codeine 08/15/2008 GI upset. Budesonide-Formoterol Fumarate COMBAT INFORMATION CENTER OFFICER Reaction 11/09/2017 Caused a cough documented as of this encounter (statuses as of 06/06/2019) Medications Medication Sig Dispensed Refills Start Date End Date Status Ibuprofen (ADVIL) 200 Take by mouth. 0 Active MG Oral Cap Spacer/Aero-Holding 1 Each by Does not 1 Each 0 12/24/2016 Active Chambers Does not apply route apply Device DIRECTED. With MDI Calcium Polycarbophil Take by mouth. 0 Active (KONSYL FIBER PO) albuterol-ipratropium 3 mL by 360 mL 0 10/25/2018 Active (DUO-NEB) 0.5-2.5 (3) Inhalation-SVN MG/3ML Inhalation route FOUR TIMES Solution DAILY. atorvastatin Take 1 Tab by mouth 90 Tab 1 03/11/2019 Active (LIPITOR) 20 MG Oral DAILY. Stop Tab pravastatin warfarin (COUMADIN) Take 0.5-1 Tabs by 95 Tab 3 04/04/2019 Active 10 MG Oral mouth DAILY. 5mg TabIndications: Tues and 10mg rest Recurrent deep vein of week thrombosis of left lower extremity (HCC) lisinopril (PRINIVIL, Take 1 Tab by mouth 90 Tab 0 05/12/2019 Active ZESTRIL) 10 MG Oral DAILY. TabIndications: Obesity (BMI 30-39.9), Mucopurulent chronic bronchitis (HCC), Tobacco dependence, Dyslipidemia, Recurrent deep vein thrombosis of left lower extremity (HCC) Tadalafil (CIALIS) 20 Take 1 Tab by mouth 6 Tab 0 06/06/2019 Active MG Oral Tab DIRECTED. 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 08/02/2015 Overview: Managed by [facility], referred by Dr Aparicio, Dx acute DVT with hx of DVT, target INR range 2.0-3.0, therapy initiated on 08/03/15, duration of therapy undetermined Anticoagulant Warfarin and Lovenox Updated referral 09/2016, 11/2017, 12/2018 Updated orders 10/07/16, 11/25/17, 01/16/19 Recurrent deep vein thrombosis of left lower extremity 07/06/2015 Overview: 2007 and 2014 risk factors: cigarette use and long car rides Tobacco dependence 10/28/2010 Overview: Began age 13 1 pack per day Obesity (BMI 30-39.9) 08/15/2008 Overview: 12/03/2006, BMI: 38.49 Replaced inactive diagnosis History of Alcohol Abuse 08/15/2008 Overview: Quit cold turkey, 2004. Personal history of colonic polyps 08/15/2008 Overview: S/P colonoscopy, Dr. Goss, 01/11/2007, normal exam. Next recommended no later than 5(five) years. COPD (chronic obstructive pulmonary disease) 08/15/2008 Dyslipidemia documented as of this encounter (statuses as of 06/06/2019) Resolved Problems Problem Noted Date Resolved Date Deep vein thrombosis (DVT) of proximal lower extremity, 09/30/2016 12/01/2016 unspecified chronicity, unspecified laterality DVT (deep venous thrombosis) 08/02/2015 12/01/2016 Encounter for therapeutic drug monitoring 04/07/2010 07/06/2015 Femoral DVT (deep venous thrombosis) 01/03/2009 12/01/2016 Long-Term (Current) Use of Anticoagulants 09/25/2008 10/14/2010 Overview: MANAGED BY [facility]. REFERRED BY DR CHERRY. [facility] INR 2.0- 3.0. FOR DVT. Update Referral 01/2010. 10/14/2010 Received documentation today that this patient is no longer on coumadin. Will discharge him from the [facility] today. Tammy Bryson LPN Hiatal hernia 08/15/2008 07/06/2015 Personal history of tobacco use, presenting hazards to health 08/15/2008 documented as of this encounter (statuses as of 06/06/2019) Immunizations Name Administration Dates Next Due Depo Medrol (80mg) 08/11/2016 PNEUMOCOCCAL POLYSACCHARIDE VACCINE 11/30/2016 TETANUS & DIPHTHERIA TOXOID (OVER 7 YRS) 12/30/2007 Tuberculin Skin Test 10/30/2010, 12/03/2006 documented as of this encounter Social History Tobacco Use Types Packs/Day Years Used Date Former Smoker Cigarettes 1 50 Quit: 10/21/2018 Smokeless Tobacco: Never Used Comments: Chantix, patch, gum Alcohol Use Drinks/Week oz/Week Comments No 0 Standard drinks or equivalent 0.0 Quit 2004 Sex Assigned at Date Recorded Not on file Job Start Date Occupation Industry Not on file Not on file Not on file Travel History Travel Start Travel End No recent travel history available. documented as of this encounter Last Filed Vital Signs Vital Sign Reading Time Taken Comments Blood Pressure 108/64 06/06/2019 2:50 PM EDT Pulse 71 06/06/2019 2:50 PM EDT Temperature - - Respiratory Rate - - Oxygen Saturation 97% 06/06/2019 2:50 PM EDT Inhaled Oxygen Concentration - - Weight 136.8 kg (301 lb 9.6 oz) 06/06/2019 2:50 PM EDT Height 182.9 cm (6') 06/06/2019 2:50 PM EDT Body Mass Index 40.9 06/06/2019 2:50 PM EDT documented in this encounter Progress Notes Arnaud Aparicio MD - 06/06/2019 3:00 PM EDT PATIENT: Rasheed Torres : 1955 DATE OF SERVICE: 06/06/2019 CHIEF COMPLAINT: Chief Complaint Patient presents with Other pt presents for discussion on lung screening Subjective HISTORY OF PRESENT ILLNESS: Rasheed Torres is a 64-y.o. male. Regarding screening for lung cancer screening: Rasheed Torres is a 64-y.o. old male considering lung cancer screening. The patient is a former smoker. He has had a prior CT scan but they were diagnostic and stable . He reports that he quit smoking about 7 months ago. His smoking use included cigarettes. He has a 50.00 pack-year smoking history. He has never used smokeless tobacco. He denies symptoms of lung cancer. Shared decision making was performed. https://effectivehealthcare.ahrq.gov/decision-aids/yozb-oynkdm-eaxrjbgbg/ decisionmaking-tool.html Together we reviewed the benefits of lung cancer screening using an [facility] authored decision supporttool. I discussed the risks of CT screening including false positive results and radiation exposure Assessment/Plan: Rasheed Torres has expressed interest the Lung Screening Program. Low-dose non- contrast CT screening of persons deemed at high risk for lung cancer has been shown to reduce lung cancer mortality by 20% compared with chest x-ray screening. Based on his history of smoking > 30 pack years and stopping within the last 15 years, he meets eligibility criteria. The patient verbally confirmed understanding of this information and accepted to proceed. I have placed orders for low dose CT imaging The patient was counseled on smoking cessation. [id number] He also wants to know if his coumadin is causing his ED. Sometimes he can get an erection and sometimes he cant. He used a friends viagra and it did not help . Not sure of the dose He does admit to nocturia several times In for follow up of hypertension.he has quit smoking and BP is good today . ? side effects to medicines with the ED Past Medical History: Diagnosis Date COPD (chronic obstructive pulmonary disease) ([facility]) 08/15/2008 Dvt femoral (deep venous thrombosis) ([facility]) x 2 2014 Dyslipidemia History of Alcohol Abuse 08/15/2008 Quit cold turkey, 2004. Hypertension LVH (left ventricular hypertrophy) normal EF 11/28 Obesity (BMI 30.0-39.9) 08/15/2008 12/03/2006, BMI: 38.49 Personal history of colonic polyps 01/11/072015 5 years Personal history of tobacco use, presenting hazards to health 08/15/2008 Family History Problem Relation Age of Onset Clotting Disorder Child Respiratory Brother Cystic fibrosis Cancer Brother Pancreas and liver. Anesth Problems No family history Arthritis No family history Diabetes No family history Kidney Disease No family history Heart Disease No family history Thyroid Disease No family history Hypertension No family history Current Outpatient Medications Medication Sig albuterol-ipratropium (DUO-NEB) 0.5-2.5 (3) MG/3ML Inhalation Solution 3 mL by Inhalation-SVNroute FOUR TIMES DAILY. atorvastatin (LIPITOR) 20 MG Oral Tab Take 1 Tab by mouth DAILY. Stop pravastatin Calcium Polycarbophil (KONSYL FIBER PO) Take by mouth. Ibuprofen (ADVIL) 200 MG Oral Cap Take by mouth. lisinopril (PRINIVIL, ZESTRIL) 10 MG Oral Tab Take 1 Tab by mouth DAILY. Spacer/Aero-Holding Chambers Does not apply Device 1 Each by Does not apply route DIRECTED. With MDI warfarin (COUMADIN) 10 MG Oral Tab Take 0.5-1 Tabs by mouth DAILY. 5mg Tues and 10mg rest of week No current facility-administered medications for this visit. Allergies Allergen Reactions Codeine GI upset. Symbicort [Budesonide-Formoterol Fumarate] COMBAT INFORMATION CENTER OFFICER Reaction Caused a cough Social History Socioeconomic History Marital status: Spouse name: Not on file Number of children: Not on file Years of education: Not on file Highest education level: Not on file Occupational History Not on file Social Needs Financial resource strain: Not on file Food insecurity: Worry: Not on file Inability: Not on file Transportation needs: Medical: Not on file Non-medical: Not on file Tobacco Use Smoking status: Former Smoker Packs/day: 1.00 Years: 50.00 Pack years: 50.00 Types: Cigarettes Last attempt to quit: 10/21/2018 Years since quittin.6 Smokeless tobacco: Never Used Tobacco comment: Chantix, patch, gum Substance and Sexual Activity Alcohol use: No Alcohol/week: 0.0 standard drinks Comment: Quit 2004 Drug use: Not on file Sexual activity: Not on file Lifestyle Physical activity: Days per week: Not on file Minutes per session: Not on file Stress: Not on file Relationships Social connections: Talks on phone: Not on file Gets together: Not on file Attends hoahaoism service: Not on file Active member of club or organization: Not on file Attends meetings of clubs or organizations: Not on file Relationship status: Not on file Intimate partner violence: Fear of current or ex partner: Not on file Emotionally abused: Not on file Physically abused: Not on file Forced sexual activity: Not on file Other Topics Concern Back Care Not Asked Bike Helmet Not Asked Blood Transfusions Not Asked Caffeine Concern Not Asked Exercise Not Asked Hobby Hazards Not Asked International Travel Not Asked Service Not Asked Occupational Exposure Not Asked Seat Belt Not Asked Self-Exams Not Asked Sleep Concern Not Asked Special Diet Not Asked Stress Concern Not Asked Weight Concern Not Asked Social History Narrative Lives with . REVIEW OF SYSTEMS: ROS Objective PHYSICAL EXAM: VITALS: BP 108/64 (BP Location: Left arm, Patient Position: Sitting) | Pulse 71 | Ht 6' (1.829 m) | Wt 301 lb 9.6 oz (136.8 kg) | SpO2 97% | BMI 40.90 kg/ m Body mass index is 40.9 kg/m. Physical Exam Constitutional: No distress. Cardiovascular: Normal rate and regular rhythm. Pulmonary/Chest: Effort normal. No respiratory distress. Psychiatric: He has a normal mood and affect. Vitals reviewed. ASSESSMENT / IMPRESSION: ICD-9-CM ICD-10-CM 1. Personal history of nicotine dependence since his scans showed nothing suspicious per radiology will change to a screening CT for Lung cancer Z87.[address] CHEST LUNG SCREENING 2. Essential hypertension BP ok today but other BP in the last 6 mo not ideal If cialis or viagra not help then will consider stopping lisinopril if BP remains good . 401.9 I10 3. Drug-induced erectile dysfunction consider Testosterone if viagra not work but replacement would make prostate symptoms more problematic 607.84 N52.2 E980.5 4. Nocturia if viagra not work then we have to consider prostate workup 788.43 R35.1 Plan Author: Arnaud Aparicio MD 06/06/2019 15:01 documented in this encounter Plan of Treatment Date Type Specialty Care Team Description 07/04/2019 AntiCoag Anticoagulation Name Type Priority Associated Diagnoses Order Schedule CT CHEST LUNG SCREENING Imaging Routine Personal history of Expected: 06/06, nicotine dependence Expires: 06/05/2020 Health Maintenance Due Date Last Done Comments MEDICARE ANNUAL WELLNESS 1955 VISIT ZOSTER IMMUNIZATION SERIES 01/11/2004 (1 of 2) AAA SCREENING/SURVEILLANCE 2019 12/17/2016, 03/03/2016, 11/19/2015 PNEUMOCOCCAL 65+YRS (1 of 2 2019 11/30/2016 - PCV13) LUNG CANCER SCREENING 04/26/2019 04/26/2018, 04/26/2018, 04/20/2018, Additional history exists INFLUENZA VACCINE (#1) 2019 DEPRESSION SCREENING 03/06/2020 03/06/2019 DIABETES SCREENING 03/06/2020 03/06/2019, 10/13/2017, 11/30/2016, Additional history exists FALL RISK ASSESSMENT 03/06/2020 03/06/2019, 03/06/2019 LIPID DISORDER SCREENING 03/11/2020 03/11/2019, 03/06/2019, 10/13/2017, Additional history exists COLONOSCOPY SCREENING 12/31/2020 01/01/2016, 01/11/2007 HPV IMMUNIZATION SERIES Aged Out No longer eligible based on patient's age to complete this topic MENINGOCOCCAL VACCINE IMM Aged Out No longer eligible based on patient's age to complete this topic documented as of this encounter Goals Goal Patient Goal Associated Recent Patient-Stated? Author Type Problems Progress Blood Pressure Blood Pressure 108/64 No Markus, < 150/90 (06/06/2019 MD Arnaud 2:50 PM EDT) Note: This is an individualized treatment (blood pressure) goal for Rasheed Marco A Brian: Displayed above (on the left) is your goal for blood pressure control. Your most recent blood pressure is also shown above, on the right. You should try to achieve blood pressures that are lower than your goal listed above (on the left). Smoking Cessation COPD No Arnaud Aparicio MD Note: This is an individualized treatment (COPD) goal for Rasheed Torres: Quit smoking immediately! Your provider has information and resources that may help you to quit. Keep immunizations current Lifestyle No Arnaud Aparicio MD Note: This is an individualized lifestyle goal for Rasheed Torres: Please be sure to keep up-to-date on recommended immunizations. For example, this would include a yearly influenza vaccine. Immunization status can be seen by looking at the Health Maintenance sections of your [facility], Plan of Care, and any After Visit Summaries. Weight loss vs. 18 mo Lifestyle 14.2 (06/06/2019 2:50 PM No Arnaud Aparicio MD max (lbs) >= 10 EDT) Note: This is an individualized lifestyle goal for Rasheed Torres: Your body mass index (BMI) is more than 30. You should lose weight. A reasonable starting goal is to lose 10 pounds. Displayed above is how many pounds you have lost thus far towards your 10 pound weight loss goal. Take all prescribed medications as directed Self-management No Arnaud Aparicio MD Note: This is an individualized self-management goal for Rasheed Torres: Please take all prescribed medications as directed. 1. Do not skip doses. If you cannot afford your medications, talk with your doctor. 2. Use a pill reminder system such as a pill box if needed. Your pharmacist can help you with this. 3. Contact your Pharmacy 5 days before your medication runs out. If you cannot take your medications for any reasons, talk with your doctor. 4. Please bring all of your medication bottles and inhalers (or a list of all your medications/inhalers) with you to every visit. Potential barriers to meeting all of your care plan goals will continue to be addressed on an ongoing basis. documented as of this encounter Results Not on filedocumented in this encounter Visit Diagnoses Diagnosis Personal history of nicotine dependence - Primary Essential hypertension Unspecified essential hypertension Drug-induced erectile dysfunction Impotence of organic origin Nocturia documented in this encounter Insurance Payer Benefit Plan / Subscriber ID Effective Dates Phone Address Type Group [employer] EX[employer]LL xxxxxxxxxxxx 2018-Present [employer] MEDIC[employer] BLUE PPO ([id number]) documented as of this encounter"
[2019-07-19] MEDS ORDERED: Acetaminophen TAB* 325 MG PO ONE (16:23)
[2019-07-19] MEDS ORDERED: Tetan/Diph/Pertus SYR(Tdap)* 0.5 ML SYR(BOOSTRIX) use SYR contains LATEX IM ONE (16:26)
--- NOTE | 2019-07-19 16:40 | ED ---
Head Injury - HPI Summary HPI Summary: Pt presents to ED with . Pt was outside when slipped and struck right frontal area on fence post. No LOC but "saw stars" no blood HEENT. No vision changes. No neck pain no cp, sob, abd pain. Pt with MALLOY a time of injury - improving with time. No analgesia taken. Pt is on coumadin for recurrent DVT - INR due next week no exte pain weakness no other injuries unknown last tdap not immunocompromised meds reviewed - History Of Current Complaint Chief Complaint: EDHeadInjury Stated Complaint: HEAD INJURY/DIZZY PER PT Time Seen by Provider: 07/19/19 16:10 Hx Obtained From: Patient, Family/Chemistry Specialist Pain Intensity: 5 - Allergies/Home Medications Allergies/Adverse Reactions: Allergies Allergy/AdvReac Type Severity Reaction Status Date / Time codeine Allergy Stomach Verified 10/20/18 20:55 Cramps PMH/Surg Hx/FS Hx/Imm Hx Previously Healthy: Yes Endocrine/Hematology History: Denies: Hx Diabetes Cardiovascular History: Reports: Hx Deep Vein Thrombosis, Hx Hypercholesterolemia, Hx Hypertension Denies: Hx Congestive Heart Failure Respiratory History: Reports: Hx Chronic Obstructive Pulmonary Disease (COPD) - equivocal History: Denies: Hx Renal Disease Sensory History: Reports: Hx Contacts or Glasses Denies: Hx Cataracts, Hx Eye Injury, Hx Glaucoma, Hx Macular Degeneration, Hx Deafness, Hx Hearing Aid, Hx Hearing Problem, Other Sensory Impairments Opthamlomology History: Reports: Hx Contacts or Glasses Denies: Hx Cataracts, Hx Eye Injury, Hx Glaucoma, Hx Macular Degeneration, Other Sensory Impairments - Surgical History Surgery Procedure, Year, and Place: cyst (benign) on left shoulder; broken jaw Infectious Disease History: No Infectious Disease History: Denies: Hx Clostridium Difficile, Hx Hepatitis, Hx Human Immunodeficiency Virus (HIV), Hx of Known/Suspected MRSA, Hx Shingles, Hx Tuberculosis, Hx Known/ Suspected VRE, Hx Known/Suspected VRSA, History Other Infectious Disease, Traveled Outside the [place] in Last 30 Days - Family History Known Family History: Positive: Other - FHx of blood clots., Non-Contributory Negative: Respiratory Disease - Social History Occupation: Retired Lives: With Family Alcohol Use: None Alcohol Amount: stopped 11.5 yrs ago Substance Use Type: Reports: None Smoking Status (MU): Heavy Every Day Tobacco Smoker Amount Used/How Often: 1 ppd Have You Smoked in the Last Year: Yes Review of Systems Constitutional: Negative Eyes: Negative Negative: Photophobia, Blurred Vision Positive: Other - head inury Cardiovascular: Negative Respiratory: Negative Gastrointestinal: Negative Genitourinary: Negative Musculoskeletal: Negative Positive: Other - abraisons right forehead Positive: Headache All Other Systems Reviewed And Are Negative: Yes Physical Exam - Summary Physical Exam Summary: Vital Signs Reviewed: Yes A+Ox3, no distress Eyes: Conjunctiva Clear, RENATA. EOM intact and full ENT: Hearing grossly normal TM x 2 clear, no hemotymp, no septal hematoma, no blood oropharynx, mmoist, uvula midline, no exudate, no erythema no pain with palpation of facial bones pt with abraisons to right frontal area and right buddhism Neck: Positive: Supple full AROM Respiratory: Positive: No respiratory distress, No accessory muscle use + CTA throughout no w/r Cardiovascular: RRR nl s1, s2 no m/r CBT <2 sec abd soft + BS nt/nd no guarding, no distension Musculoskeletal Exam: Full AROM c spine no pain c/t/l/s pt with mild diescomfort right paraspinal VALENCIA x 4 without difficulty Strength Intact, ROM Intact Neurological: Positive: Alert, + sensation throughout Psychological: Positive: Normal Response To systems engineer Skin: Positive: no rash, no ecchymosis, abraison to right frontal area Triage Information Reviewed: Yes Vital Signs On Initial Exam: Initial Vitals Temp Pulse Resp BP Pulse Ox 99.4 F 70 16 152/75 97 07/19/19 14:20 07/19/19 14:20 07/19/19 14:20 07/19/19 14:20 07/19/19 14:20 Vital Signs Reviewed: Yes - [place] Coma Scale Best Eye Response: 4 - Spontaneous Best Motor Response: 6 - Obeys Commands Best Verbal Response: 5 - Oriented Coma Scale Total: 15 Procedures - Sedation Patient Received Moderate/Deep Sedation with Procedure: No Diagnostics - Vital Signs Vital Signs Temp Pulse Resp BP Pulse Ox 07/19/19 14:20 99.4 F 70 16 152/75 97 - Laboratory Lab Statement: Any lab studies that have been ordered have been reviewed, and results considered in the medical decision making process. - CT Brain CT CT Interpretation Completed By: Radiologist Summary of CT Findings: Brain CT IMPRESSION: No intracranial mass or hemorrhage is noted. Reviewed by ED physician. Cervical Spine CT CT Interpretation Completed By: Radiologist Summary of CT Findings: Cervical Spine CT IMPRESSION: No recent fracture of the cervical spine is noted. Broad-based protrusion is noted at C2-C3 and C3-C4. There appears to be suggestion of a bony fragment which is likely from prior injury arising from the left facet joint at C3-C4 causing left foraminal stenosis. No recent fracture is identified. Facet arthropathy is noted on the left at C4-C5. Reviewed by ED physician. Re-Evaluation - Re-Evaluation First Eval Comment: reviewed CT and INR with pt. Will contact pcp in am to discuss INR 1.9. APAP. rest. reviewed CT related to neck - pt states old injurues. given neurodurgery referral prn Head Injury Course/Dx Course Of Treatment: Pt presents to the ED after a slip and fall - striking right frontal area on side of forehead. no LOC pt on coumadin. VSS. Pt with abraison right frontal area and buddhism no crepitus no blood HEENT. non suturable abraison. will CT head, c spine -given location of wound. tdap. APAP INR. reassess. pt comfortable and in agreement with plan - Diagnoses Provider Diagnoses: Closed head injury, Abrasion, History of tetanus, diphtheria, and acellular pertussis booster vaccination (Tdap) Discharge ED - Sign-Out/Discharge Documenting (check all that apply): Patient Departure - Discharge - Discharge Plan Condition: Stable Disposition: HOME Patient Education Materials: Head Injury (ED), Tdap and Td Vaccines for Adults (ED) Referrals: Arnaud Aparicio MD [Primary Care Provider] - Jhonatan Miguel MD [Medical Doctor] - Additional Instructions: - okay to take Tylenol every 6 hours as needed for pain - anticipate increased discomfort over the next 24-36 horus - this is normal - okay to apply ice (wrappend in a towel) to your wound 2-3 times a day for discomfort or swelling - discuss your coumadin level tomorrow with your provider at [facility] Contact your doctor or return with questions or concerns As discussed, the CT of your next showed some old injuries - you have been given the name of the neursurgeon - okay t to discuss with this person our your primary regarding the arm tinlging and pain you said you sometimes get in your arms and back - Billing Disposition and Condition Condition: STABLE Disposition: Home - Attestation Statements Document Initiated by Inga: Yes Documenting Scribe: Martha Marie Provider For Whom Elveribe is Documenting (Include Credential): Isi Slater MD Scribe Attestation: I, Martha Marie, scribed for Isi Slater MD on 07/20/19 at 1916. Scribe Documentation Reviewed: Yes Provider Attestation: The documentation as recorded by the elveribeMartha accurately reflects the service I personally performed and the decisions made by me, Isi Slater MD Status of Scribe Document: Viewed
[2019-07-19 17:04] LABS: INR 1.96 (0.82-1.09)
[2019-07-19 18:40] VITALS: BP 149/89
== END 2019-07-19 18:36 | disposition home or self-care (01) ==
LOC: ED 14:17
DX: S00.81XA Abrasion of other part of head, initial encounter (principal); Z23 Encounter for immunization; W18.49XA Other slipping, tripping and stumbling without falling, initial encounter; W22.09XA Striking against other stationary object, initial encounter; Y92.9 Unspecified place or not applicable; E78.00 Pure hypercholesterolemia, unspecified; I10 Essential (primary) hypertension; J44.9 Chronic obstructive pulmonary disease, unspecified; F17.200 Nicotine dependence, unspecified, uncomplicated; Z86.718 Personal history of other venous thrombosis and embolism; Z79.01 Long term (current) use of anticoagulants; Z88.5 Allergy status to narcotic agent
CPT/HCPCS: 36415; 70450; 72125; 85610; 90471; 90715; 99282; A9270-GY